=== PATIENT | female | born 1990 | race Two or more races ===

== ENCOUNTER 2021-01-25 00:49 | Emergency (ER) | payer SELFPAY ==
--- NOTE | 2021-01-25 00:56 | NUR ---
CALLED FOR TRIAGE, NO ANSWER.
--- NOTE | 2021-01-25 01:01 | NUR ---
CALLED FOR TRIAGE, NO ANSWER.
--- NOTE | 2021-01-25 01:04 | NUR ---
CALLED FOR TRIAGE, NO ANSWER.
[2021-01-25] MEDS ORDERED: NITR100C6 PO (04:15)
[2021-01-25] MEDS ORDERED: IBUP-1957 PO (04:43)
== END 2021-01-25 01:27 | disposition left against medical advice (07) ==
LOC: ER 00:58
DX: Z53.21 Procedure and treatment not carried out due to patient leaving prior to being seen by health care provider (principal)

== ENCOUNTER 2021-01-25 01:35 | Emergency (ER) | payer OTHER ==
[~2021-01-25] VITALS: Ht 165.1 cm; Wt 54.4 kg
--- NOTE | 2021-01-25 01:53 | NUR ---
pt bibself c/o headache, flank pain, and lower back pain. Pt aaox4 breathing evenly and unlabored. Pt states that she "went for a hike a few days ago and thats when the pains started". Pt attached to monitor and pox. at bedside. Rt ac 20g intiated, blood drawn and sent to lab. Will continue to monitor.
[2021-01-25] MEDS ORDERED: KETOROLAC TROMETHAMINE INJ 30 MG/ML VIAL ONE (02:22)
[2021-01-25] MEDS ORDERED: ONDANSETRON HCL/PF 4 MG/2 ML VIAL ONE (02:22)
[2021-01-25 02:30] LABS: BILIRUBIN,URINE Negative (NEGATIVE); COLOR,URINE YELLOW (YELLOW); LEUKOCYTE ESTERASE ,URINE Trace (NEGATIVE); NITRITE, URINE Negative (NEGATIVE); PROTEIN,URINE Negative (NEGATIVE); UGLUCOSE Negative (NEGATIVE); UROBILINOGEN,URINE 0.2 EU/dL (0.2)
[2021-01-25] MEDS ORDERED: KETOROLAC TROMETHAMINE INJ 30 MG/ML VIAL IV ONE (02:30)
[2021-01-25] MEDS ORDERED: IV NS 0.9% 1,000 ML BAG IV ONE (02:30)
[2021-01-25] MEDS ORDERED: ONDANSETRON HCL/PF 4 MG/2 ML VIAL IVP ONE (02:30)
[2021-01-25 02:41] LABS: BASOPHILS % (AUTO) 0.4 % (0.0-2.0); EOSINOPHILS % (AUTO) 0.2 % (0.0-6.0); HEMATOCRIT 42 % (33-45); LYMPHOCYTES # (AUTO) 0.7 K/uL (0.8-4.8); MEAN CORPUSCULAR HGB CONC 34 g/dl (31.0-36.0); MEAN CORPUSCULAR VOLUME 97 fL (82-100); MONOCYTES # (AUTO) 0.5 K/uL (0.1-1.30); MONOCYTES % (AUTO) 19.2 % (2.0-12.0); NEUTROPHILS # (AUTO) 1.3 K/uL (1.8-8.9); NEUTROPHILS % (AUTO) 51.2 % (43.0-81.0); PLATELET COUNT (AUTO) 184 K/uL (150-450); WHITE BLOOD COUNT (AUTO) 2.5 K/uL (4.3-11.0)
[2021-01-25 02:47] LABS: CALCIUM, SERUM 8.4 mg/dL (8.5-10.1); CREATININE 0.8 mg/dL (0.6-1.3); POTASSIUM 3.6 mmol/L (3.5-5.1)
[2021-01-25 02:48] LABS: BACTERIA,URINE None seen /HPF (None Seen); RBC,URINE 0-2 /HPF (0-2); SQUAMOUS EPITHELIAL CELL,UR Moderate /HPF (None Seen)
[2021-01-25 02:52] LABS: BILIRUBIN,DIRECT 0.1 mg/dL (0.0-0.2); BILIRUBIN,TOTAL 0.2 mg/dL (0.2-1.0); TOTAL PROTEIN, SERUM 7.2 g/dL (6.4-8.2)
--- NOTE | 2021-01-25 03:03 | NUR ---
xray at bedside
--- NOTE | 2021-01-25 03:10 | NUR ---
returned from ct
[2021-01-25 03:39] LABS: BAND % (MANUAL) 4 % (0.0-5.0); BASOPHILS % (MANUAL) 0 % (0.0-2.0); EOSINOPHILS % (MANUAL) 0 % (0-4); LYMPHOCYTES % (MANUAL) 28 % (16-48); MONOCYTES % (MANUAL) 20 % (0-11.0); NEUTROPHILS % (MANUAL) 48 (42-76)
--- NOTE | 2021-01-25 03:56 | NUR ---
called alf to have image read
[2021-01-25] MEDS ORDERED: NITR100C6 PO (04:15)
--- NOTE | 2021-01-25 04:25 | NUR ---
Patient discharged to home in stable condition. Written and verbal after care instructions given. Patient verbalizes understanding of instruction. IV removed. Catheter intact and site benign. Pressure and 4x4 applied to site. No bleeding noted. pt ambulatory with a steady gait
[2021-01-25] MEDS ORDERED: IBUP-1957 PO (04:43)
[2021-01-25 04:49] VITALS: BP 110/65
== END 2021-01-25 04:25 | disposition home or self-care (01) ==
LOC: ER 01:39
DX: N39.0 Urinary tract infection, site not specified (principal); M54.5 Low back pain
CPT/HCPCS: 36415; 74176; 80048; 80076; 81001; 83690; 84703; 85007; 85025; 96361; 96374; 96375; 99284; J1885; J2405; J7030

== ENCOUNTER 2024-07-08 18:28 | Emergency (ER) | payer OTHER ==
[~2024-07-08] VITALS: Ht 167.6 cm; Wt 65.8 kg
[~2024-07-08 18:28] MED LIST: IBUP-1957 PO; NITR100C6 PO
[2024-07-08 21:45] VITALS: BP 144/85; TEMP 97.7; O2SAT 95
[2024-07-08] MEDS ORDERED: AMOX/CLAVULANATE 875 MG TABLET ONE (21:55)
[2024-07-08] MEDS: AMOX/CLAVULANATE 875 MG TABLET PO ONE (21:58)
[2024-07-08] MEDS ORDERED: AMOX-430 PO (22:06)
== END 2024-07-08 22:18 | disposition home or self-care (01) ==
LOC: ER 18:32
DX: S60.411A Abrasion of left index finger, initial encounter (principal); Z79.1 Long term (current) use of non-steroidal anti-inflammatories (NSAID); Z87.442 Personal history of urinary calculi; W53.21XA Bitten by squirrel, initial encounter; Y93.89 Activity, other specified; Y92.89 Other specified places as the place of occurrence of the external cause; Y99.8 Other external cause status